=== PATIENT | male | born 1950 | race African-American/Black ===

== ENCOUNTER 2016-07-12 08:43 | Day surgery (SDC) | payer BC, SELFPAY ==
--- NOTE | ~2016-07-12 | EGD ---
EGD REPORT [facility] [address] [place]. [place] [address] NAME: EDDIE TOLBERT JR : 46 STATUS : REG [facility]#: [id number] AGE: 65 ADM/REG DATE : 07/12/16 MR#: [id number] REPORT SERV DATE: 07/12/16 DICTATED BY: MAURICE VALDERRAMA DATE: 07/12/16 REPORT STATUS : Draft TRANSCRIBED BY: [employer] DATE: 07/12/16 [facility] Patient Name: Eddie Tolbert Date of : 1950 Attending MD: MAURICE VALDERRAMA MD Procedure Date No Time: 07/12/2016 Procedure: Upper GI endoscopy Indications: Heartburn, Suspected esophageal reflux, hx intestinal metaplasia Referring MD: LENNY DAVIS Medicines: as per anesthesia Complications: No immediate complications. Procedure: Pre-Anesthesia Assessment: - ASA Grade Assessment: III - A patient with severe systemic disease. After obtaining informed consent, the endoscope was passed under direct vision. Throughout the procedure, the patient's blood pressure, pulse, and oxygen saturations were monitored continuously. The GIF [id number] was introduced through the mouth, and advanced to the third part of duodenum. The upper GI endoscopy was accomplished without difficulty. The patient tolerated the procedure. Findings: The examined esophagus was normal. Localized minimal inflammation characterized by erythema was found in the gastric antrum. Biopsies were taken with a cold forceps for histology. The cardia and gastric fundus were normal on retroflexion. The examined duodenum was normal. Impression: - Normal esophagus. - Gastritis. Biopsied. - Normal examined duodenum. Recommendation: - Await pathology results. - Follow an antireflux regimen. - Continue present medications. Procedure Code(s): --- Professional --- 88785, Esophagogastroduodenoscopy, flexible, transoral; with biopsy, single or multiple Diagnosis Code(s): --- Professional --- EGD REPORT [facility] [address] [id number] NAME: EDDIE TOLBERT JR : 46 STATUS : REG [facility] PAT#: [id number] AGE: 65 ADM/REG DATE : 07/12/16 MR#: [id number] REPORT SERV DATE: 07/12/16 DICTATED BY: MAURICE VALDERRAMA. DATE: 07/12/16 REPORT STATUS : Draft TRANSCRIBED BY: [employer] DATE: 07/12/16 K29.70, Gastritis, unspecified, without bleeding R12, Heartburn CPT copyright 2013 [employer]. All rights reserved. The codes documented in this report are preliminary and upon program project manager review may be revised to meet current compliance requirements. MAURICE VALDERRAMA MD 07/12/2016 11:58 AM This report has been signed electronically. Number of Addenda: 0 Note Initiated On: 07/12/2016 11:36 AM Scope Withdrawal Time 0 hours 0 minutes 0 seconds [id number] [id number]
[~2016-07-12 08:43] MED LIST: ACET500CAP PO; ALEVE220 MG PO; ASAB PO; COREG25 PO; FLEX PO; FLOMAX4 PO; GLUCOPHAGE1000 MG PO; IBU600 PO; KADIANSR50 PO; LIPITOR40 PO; LISINOPRIL40 MG PO; LOP25 PO; MIRALAXPKT PO; NAP500 PO; NEXIUM40 PO; NORV10 PO; NORV5 PO; PLAVIX PO; PREV30 PO; PRIN20 PO; PROAIR HFA INH; SPIRIVA INH; VICODINTAB PO; ZOCOR80 MG PO
[2016-08-11] MEDS ORDERED: ALEVE220 MG PO (14:11)
[2016-08-11] MEDS ORDERED: NORV10 PO (14:13)
[2016-09-28] MEDS ORDERED: CLARIT10 PO (13:44)
== END 2016-07-12 23:59 | disposition home or self-care (01) ==
LOC: DMU 08:43
PROVIDERS: Internal Medicine Gastroenterology
PROC: 0DB68ZX Excision of Stomach, Via Natural or Artificial Opening Endoscopic, Diagnostic (ICD-10-PCS; principal; 2016-07-12 10:00)
DX: K29.50 Unspecified chronic gastritis without bleeding (principal); F17.210 Nicotine dependence, cigarettes, uncomplicated; I10 Essential (primary) hypertension; I25.10 Atherosclerotic heart disease of native coronary artery without angina pectoris; J44.9 Chronic obstructive pulmonary disease, unspecified; E11.9 Type 2 diabetes mellitus without complications; I25.2 Old myocardial infarction; M19.90 Unspecified osteoarthritis, unspecified site; Z88.5 Allergy status to narcotic agent; Z79.82 Long term (current) use of aspirin; Z79.899 Other long term (current) drug therapy; Z98.890 Other specified postprocedural states
CPT/HCPCS: 82962; 88305; 88342

== ENCOUNTER 2016-08-19 06:48 | Day surgery (SDC) | payer BC, OTHER ==
[2016-08-15 10:04] LABS: HEMATOCRIT 41.3 % (40.0-51.0); HEMOGLOBIN 14.2 g/dL (13.6-17.8)
[2016-08-15 10:20] LABS: BUN (BLOOD UREA NITROGEN) 15 MG/DL (6-23); CALCIUM, SERUM 8.7 MG/DL (8.5-10.4); CHLORIDE, SERUM 108 MMOL/L (96-112); CO2 (CARBON DIOXIDE) 25 MMOL/L (24-34); CREATININE 1.27 MG/DL (0.70-1.30); GFR AFRICAN AMERICAN 67 ML/MIN (>=60); GFR NON AFRICAN AMERICAN 58 ML/MIN (>=60); POTASSIUM, SERUM 4.1 MMOL/L (3.5-5.3); SGOT(AST) 21 U/L (5-40); SGPT(ALT) 23 U/L (5-65); SODIUM, SERUM 142 MMOL/L (135-148); TOTAL PROTEIN 7.3 G/DL (6.0-8.5)
[2016-08-15 10:21] LABS: A/G RATIO 0.9 (0.7-1.9); ALBUMIN 3.4 G/DL (3.5-5.0); ALKALINE PHOSPHATASE 110 U/L (45-117); GLOBULIN 3.9 G/DL (2.5-4.1); GLUCOSE, SERUM 69 MG/DL (60-99); TOTAL BILIRUBIN 0.7 MG/DL (0-1.2)
--- NOTE | ~2016-08-19 | OP ---
Record Of [facility] [address] [place]. [address] NAME: EDDIE TOLBERT JR : 46 STATUS : [facility]#: [id number] AGE: 66 ADM/REG DATE : 08/19/16 MR#: [id number] REPORT SERV DATE: 08/22/16 DICTATED BY: ADITYA DEAN DATE: 08/19/16 REPORT STATUS : Draft TRANSCRIBED BY: MODL DATE: 08/19/16 DATE OF PROCEDURE: 08/19/2016 PREOPERATIVE DIAGNOSIS: Chronic cholecystitis. POSTOPERATIVE DIAGNOSIS: Chronic cholecystitis. PROCEDURE: Laparoscopic cholecystectomy. SURGEON: Aditya Dean M.D. RESIDENT: Zayra Lynch M.D. ANESTHESIA: General endotracheal anesthesia with local anesthetic administered by the surgeon. SPECIMEN: Gallbladder and contents. ESTIMATED BLOOD LOSS: 50 mL. IV FLUIDS: 1000 mL. COMPLICATIONS: None apparent. DRAINS: None. URINE OUTPUT: Unmeasured. INDICATIONS: Mr. Tolbert is a 65-year-old man who was evaluated in the office secondary to gallstones. He also had a history of a liver abscess in 02/2016 and was treated with percutaneous aspiration, the etiology of which is thought to be related to his gallbladder. He was offered a laparoscopic cholecystectomy and possible open cholecystectomy. Benefits, alternatives, and risks including bleeding, infection, injury to the common bile duct, liver, intestine requiring extensive reconstruction, bile leak following surgery, possible conversion to open, trocar site hernia, as well as postoperative diarrhea, and risk of general endotracheal anesthesia including, but not limited to, heart attack, stroke, and were all described in detail to the patient preoperatively, and he voiced understanding of these risks and desired to proceed with surgery. PROCEDURE IN DETAIL: The patient was identified preoperatively as Eddie Tolbert. It was determined the appropriately signed documents including history and physical and operative permit was secured on the chart. He was taken to the operating room and placed supine on the operative table where general endotracheal anesthesia was induced by the Anesthesia Service who monitored the patient throughout the procedure. The abdomen was prepped and draped sterilely and an appropriate time-out procedure was completed wherein the patient's procedure site, positioning, allergies, equipment, and administration of antibiotics were Record Of [place] [address] [place]. [address] NAME: EDDIE TOLBERT JR : 46 STATUS : [facility] PAT#: [id number] AGE: 66 ADM/REG DATE : 08/19/16 MR#: [id number] REPORT SERV DATE: 08/22/16 DICTATED BY: ADITYA DEAN DATE: 08/19/16 REPORT STATUS : Draft TRANSCRIBED BY: BEHZAD DATE: 08/19/16 all verified prior to beginning. Local anesthetic was instilled at the umbilicus and a small incision was made within the umbilical well using a Mei clamp. The kiowa tribe umbilical defect was encountered, retractor placed, and a 10-12 trocar inserted into the abdomen. The abdomen was insufflated, which the patient tolerated well. A laparoscope was inserted. No injury from initial trocar placement was noted. The abdomen was surveyed. Numerous dense adhesions were encountered between the omentum and the liver encasing the gallbladder. Additional trocars were then placed in the following locations after anesthetizing the skin, a 10 mm in the epigastrium and two 5 mm along the right costal margin. We proceeded with an extensive lysis of adhesions of the omentum to the gallbladder and the liver edge. Bleeding was encountered, this was controlled with electrocautery. The liver was quite friable likely secondary to his previous liver abscess. As visualization was poor, an additional trocar was placed in the right mid abdomen after anesthetizing the skin. This was a 5 mm and it was placed under direct laparoscopic vision. Utilizing this retraction of the omentum and again proceeding with the lysis of adhesions from the omentum to the gallbladder, the gallbladder finally came into view. It was retracted over the dome of the liver. This was also difficult secondary to the patient's body habitus and the infundibulum was retracted towards the right lower quadrant, thus exposing the Calot triangle. We then proceeded with further lysis of adhesions between the omentum and the infundibulum of the gallbladder and bluntly dissected from lateral to medial and encountered the cystic artery. This was dissected free of surrounding tissue and was doubly clipped with clips, two proximally, one distally, and then ligated between clips. We then proceeded in further dissection and encountered the cystic duct which was actually located posterior to the cystic artery, and this was dissected free of surrounding tissues. Again, I doubly clipped and ligated between clips. Next, the gallbladder was taken off the liver bed. A tedious and extensive dissection was taken here. Secondary to the patient's chronic cholecystitis, there was not a well-developed plane between the gallbladder and the liver. Bleeding once again was encountered. This was controlled with a combination of electrocautery and clips secondary to this extensive and tedious dissection and that this operation took well over two times the normal amount of time and generally stents in this operation; a 22 modifier will be applied to this case. The gallbladder was removed from the liver bed entirely. Hemostasis was then ensured again with electrocautery. The gallbladder was placed in a laparoscopic retrieval bag and removed from the abdomen from the subxiphoid port. The abdomen was then thoroughly irrigated and suctioned free of irrigant. Again, hemostasis was ensured. Being satisfied of this, excessive trocars were removed under direct vision. No intraabdominal bleeding was noted. The abdomen was then allowed to desufflate completely through the umbilical site. The fascia at the umbilicus was reapproximated with Vicryl. All skin sites were closed with Monocryl in a subcuticular fashion. A pressure dressing was placed to the umbilicus and Dermabond was placed over the accessory trocar sites. This ended the surgical procedure. Dr. Dean was present and scrubbed for the entirety of the operation. All counts of needles, sponges, and instruments were correct at the end of the case. Sedation was stopped. The patient was allowed to awaken, extubated in the operating room, and taken to the postanesthesia care unit in good condition after having tolerated the procedure well. No intraoperative complications were noted. DICTATED BY: Zayra Lynch MD Record Of Operation [address] [address] NAME: EDDIE TOLBERT GHADA VYAS : 46 STATUS : [facility] PAT#: [id number] AGE: 66 ADM/REG DATE : 08/19/16 MR#: [id number] REPORT SERV DATE: 08/22/16 DICTATED BY: ADITYA DEAN DATE: 08/19/16 REPORT STATUS : Draft TRANSCRIBED BY: BEHZAD DATE: 08/19/16 Jono/BEHZAD Aditya Dean MD / [id number] CC: MD Geri Mccormick N.P.
[2016-09-28] MEDS ORDERED: CLARIT10 PO (13:44)
== END 2016-08-19 17:31 | disposition home or self-care (01) ==
LOC: SDC 06:48
PROVIDERS: Surgery
PROC: 0FT44ZZ Resection of Gallbladder, Percutaneous Endoscopic Approach (ICD-10-PCS; principal; 2016-08-19 09:30)
DX: K80.10 Calculus of gallbladder with chronic cholecystitis without obstruction (principal); J44.9 Chronic obstructive pulmonary disease, unspecified; I50.9 Heart failure, unspecified; I25.10 Atherosclerotic heart disease of native coronary artery without angina pectoris; F32.9 Major depressive disorder, single episode, unspecified; E11.40 Type 2 diabetes mellitus with diabetic neuropathy, unspecified; K21.9 Gastro-esophageal reflux disease without esophagitis; I10 Essential (primary) hypertension; F17.200 Nicotine dependence, unspecified, uncomplicated; E78.00 Pure hypercholesterolemia, unspecified; G47.30 Sleep apnea, unspecified; Z88.5 Allergy status to narcotic agent; Z88.8 Allergy status to other drugs, medicaments and biological substances; Z79.899 Other long term (current) drug therapy
CPT/HCPCS: 80053; 82962; 85014; 85018; 88304; 93005; A9270-GY; J0690; J1170; J2250; J2550; J3010; Q9967

== ENCOUNTER 2016-10-03 06:03 | Day surgery (SDC) | payer BC, OTHER ==
[2016-09-29 09:08] LABS: HEMATOCRIT 41.6 % (40.0-51.0); HEMOGLOBIN 14.1 g/dL (13.6-17.8)
[2016-09-29 09:22] LABS: BUN (BLOOD UREA NITROGEN) 12 MG/DL (6-23); CALCIUM, SERUM 8.2 MG/DL (8.5-10.4); CHLORIDE, SERUM 111 MMOL/L (96-112); CO2 (CARBON DIOXIDE) 27 MMOL/L (24-34); CREATININE 1.33 MG/DL (0.70-1.30); GFR AFRICAN AMERICAN 63 ML/MIN (>=60); GFR NON AFRICAN AMERICAN 55 ML/MIN (>=60); POTASSIUM, SERUM 4.7 MMOL/L (3.5-5.3); SODIUM, SERUM 144 MMOL/L (135-148)
[2016-09-29 09:26] LABS: GLUCOSE, SERUM 94 MG/DL (60-99)
--- NOTE | ~2016-10-03 | OP ---
Record Of [place] [address] [place]. [address] NAME: EDDIE TOLBERT JR : 46 STATUS : [facility]#: [id number] AGE: 66 ADM/REG DATE : 10/03/16 MR#: [id number] REPORT SERV DATE: 10/03/16 DICTATED BY: Jessica LINO DATE: 10/03/16 REPORT STATUS : Draft TRANSCRIBED BY: BEHZAD DATE: 10/03/16 DATE OF PROCEDURE: 10/03/2016 PREOPERATIVE DIAGNOSIS: Elevated prostate specific antigen. POSTOPERATIVE DIAGNOSIS: Elevated prostate specific antigen. PROCEDURE: Transrectal ultrasound-guided needle biopsy of the prostate. SURGEON: Jessica Lino M.D. ANESTHESIA: MAC. COMPLICATIONS: None. DRAINS: None. BRIEF HISTORY: Mr. Tolbert is a 66-year-old black male with a history of an elevated PSA that recently aung as high as 9.39 with 5% free. We recommended biopsy. It was attempted in the office, but he was intolerant, so he is here under anesthesia. The risks of bleeding, infection, anesthesia, injury to adjacent organs, inability to detect cancer even if present, etc., were all discussed. There were no unanswered questions. DESCRIPTION OF PROCEDURE: Under excellent MAC anesthesia, the patient was placed in a left lateral decubitus position, knees to chest. Transrectal ultrasonography was performed and showed a gland measuring 36 mL with probable intravesical median lobe. The biopsy gun was then used to obtain a total of 14 biopsies, 2 from the left base, 3 from the left mid gland, 2 from the left apex; similarly, 2 from the right base, 3 from the right mid gland, 2 from the right apex. Patient tolerated the procedure well and will be discharged as an outpatient with the following instructions. DISCHARGE INSTRUCTIONS: 1. Home today. 2. Call for excessive bleeding or fever greater than 101. 3. Follow up in my office in one week to review the results. NNEKA/BEHZAD Jessica Lino M.D. / [id number] CC: Record Of [address] [address] NAME: EDDIE TOLBERT JR : 46 STATUS : [facility]#: [id number] AGE: 66 ADM/REG DATE : 10/03/16 MR#: [id number] REPORT SERV DATE: 10/03/16 DICTATED BY: Jessica LINO DATE: 10/03/16 REPORT STATUS : Draft TRANSCRIBED BY: MODL DATE: 10/03/16 Maxwell Gillis N.P.
[~2016-10-03 06:03] MED LIST changes: +CLARIT10 PO
== END 2016-10-03 10:07 | disposition home or self-care (01) ==
LOC: SDC 06:03
PROC: 0VB07ZX Excision of Prostate, Via Natural or Artificial Opening, Diagnostic (ICD-10-PCS; principal; 2016-10-03 07:45)
DX: C61 Malignant neoplasm of prostate (principal); I12.9 Hypertensive chronic kidney disease with stage 1 through stage 4 chronic kidney disease, or unspecified chronic kidney disease; E11.22 Type 2 diabetes mellitus with diabetic chronic kidney disease; N18.9 Chronic kidney disease, unspecified; I25.2 Old myocardial infarction; J44.9 Chronic obstructive pulmonary disease, unspecified; F32.9 Major depressive disorder, single episode, unspecified; F17.210 Nicotine dependence, cigarettes, uncomplicated; G47.33 Obstructive sleep apnea (adult) (pediatric); K21.9 Gastro-esophageal reflux disease without esophagitis; H26.9 Unspecified cataract; M17.9 Osteoarthritis of knee, unspecified; Z88.5 Allergy status to narcotic agent; Z79.84 Long term (current) use of oral hypoglycemic drugs; Z79.82 Long term (current) use of aspirin; Z79.899 Other long term (current) drug therapy; Z86.010 Personal history of colon polyps; Z90.49 Acquired absence of other specified parts of digestive tract; Z98.890 Other specified postprocedural states
CPT/HCPCS: 76872; 76942; 80048; 82962; 85014; 85018; 88305; 88342; 93005; J3010